=== PATIENT | male | born 1965 | race Caucasian/White ===

== ENCOUNTER 2020-02-24 10:23 | Outpatient (CLI) | payer OTHER, SELFPAY ==
--- NOTE | 2020-02-24 | ECG_ITS ---
Measurements Intervals [place] Rate: 67 P: 32 AL: 148 QRS: 39 QRSD: 104 T: 29 QT: 407 QTc: 431 Interpretive Statements SINUS RHYTHM NORMAL ECG Electronically Signed On 02-24-2020 10:51:47 CDT by Adebayo Damian D.O.
== END 2020-02-24 10:24 | disposition home or self-care (01) ==
PROVIDERS: PCP Internal Medicine; Visit Provider Internal Medicine
DX: I10 Essential (primary) hypertension (principal)
CPT/HCPCS: 93005

== ENCOUNTER 2021-01-18 13:00 | Outpatient (RCR) | payer OTHER, SELFPAY ==
[2020-12-22 11:10] VITALS: BMI 41.2
[2020-12-22 12:39] VITALS: BMI 41.2
== END 2021-03-08 12:02 | disposition home or self-care (01) ==
LOC: ANHDMC 13:00
PROVIDERS: PCP Internal Medicine; Visit Provider Internal Medicine
DX: E11.65 Type 2 diabetes mellitus with hyperglycemia (principal); Z71.3 Dietary counseling and surveillance; Z71.89 Other specified counseling
CPT/HCPCS: 97802; G0108